=== PATIENT | male | born 1990 | race American Indian/Alaskan Native ===

== ENCOUNTER 2018-01-23 23:49 | Emergency (ER) | payer OTHER ==
[2018-01-23 23:58] VITALS: BP 134/70; PULSE 72; RESP 18; TEMP 97.7; O2SAT 99
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
== END 2018-01-24 01:18 | disposition home or self-care (01) ==
LOC: SUPCPDRO 23:49 → C.ER 23:49
DX: S63.501A Unspecified sprain of right wrist, initial encounter (principal); S43.401A Unspecified sprain of right shoulder joint, initial encounter; V03.90XA Pedestrian on foot injured in collision with car, pick-up truck or van, unspecified whether traffic or nontraffic accident, initial encounter; Y92.410 Unspecified street and highway as the place of occurrence of the external cause